=== PATIENT | female | born 1995 | race Caucasian/White ===

== ENCOUNTER 2018-12-01 00:33 | Inpatient (IN) | payer MEDICAID ==
[~2018-12-01] VITALS: Ht 152.4 cm; Wt 83.4 kg
[2018-12-01] MEDS ORDERED: LORazepam 2MG/ML-1ML VIAL IV ONE ×2 (01:00→05:45)
[2018-12-01] MEDS ORDERED: SODIUM CHLORIDE 0.9% 1,000 ML IV ONE ×2 (01:00→04:15)
[2018-12-01 01:45] LABS: Basophils # (auto) 0.1 uL; Basophils % (auto) 0.8 % (0.0-2.0); Eosinophils # (auto) 0.1 uL; Hemoglobin 13.1 g/dL (12.2-16.2); Lymphocytes % (auto) 33.3 % (10.0-50.0); Mean Corpuscular Hemoglobin 29.8 pg (28.0-32.0); Mean Corpuscular Hgb Conc. 33.7 g/dL (32.0-36.0); Mean Corpuscular Volume 88.3 fL (80.0-100.0); Monocytes # (auto) 0.9 uL; Monocytes % (auto) 7.9 % (0.0-12.0); Neutrophils # (auto) 6.8 uL; Nucleated Red Blood Cells % 0.1 %; Platelet Count (auto) 345 10^3/uL (140-450); Red Blood Cells 4.41 10^6/uL (4.0-5.20); Red Cell Distribution Width 12.7 % (11.8-14.3); White Blood Cell 11.9 10^3/uL (4.4-10.8)
[2018-12-01 01:51] LABS: Alanine Aminotransferase 35 U/L (13-56); Albumin 2.6 g/dL (3.4-5.0); Anion Gap 9 (5-15); Aspartate Aminotransferase 39 U/L (15-37); BUN/Creatinine Ratio 18.6; Blood Alcohol < 3.0 mg/dL (0-5); Blood Urea Nitrogen 8 mg/dL (7-18); Carbon Dioxide 15 mmol/L (21-32); Chloride 121 mmol/L (98-107); GFR African American 238 mL/min; GFR Non-African American 197 mL/min; Glucose 69 mg/dL (74-106); Sodium 145 mmol/L (136-145)
[2018-12-01 01:53] LABS: Potassium 2.5 mmol/L (3.5-5.1)
[2018-12-01 01:54] LABS: Alkaline Phosphatase 49 U/L (45-117); Bilirubin, Total 0.3 mg/dL (0.2-1.0); Total Protein 5.2 g/dL (6.4-8.2)
[2018-12-01] MEDS ORDERED: POTASSIUM CHL 10% (20 MEQ/15ML) 15ml ORAL SOLN PO ONE (02:00)
[2018-12-01 02:02] LABS: Acetaminophen 3.5 ug/mL (10-30); Salicylate < 1.7 mg/dL (2.8-20.0)
[2018-12-01] MEDS: MAGNESIUM SULFATE 1GM/100ML 100 ML IV SCH ×3 (03:49→07:00)
[2018-12-01] MEDS ORDERED: LORazepam 2MG/ML-1ML VIAL ONE (05:30)
[2018-12-01] MEDS ORDERED: MORPHINE SULF INJ 2 MG/ML SYRINGE 1ML IV PRN (05:45)
[2018-12-01] MEDS ORDERED: NITROGLYCERIN 0.4 MG SL TAB SL PRN (05:45)
[2018-12-01] MEDS ORDERED: ONDANSETRON HCL 4 MG/2 ML VIAL IV PRN (05:45)
[2018-12-01] MEDS ORDERED: SODIUM CHLORIDE 0.9% 500 ML IV ONE (06:00)
[2018-12-01] MEDS: SODIUM CHLORIDE 0.9% 1,000 ML IV SCH ×2 (08:35→18:13)
[2018-12-01 08:39] LABS: Alcohol, Urine < 3.0 mg/dL (0-5); Amphetamine Screen, Urine NEGATIVE (NEGATIVE); Barbiturate Scree,Urine NEGATIVE (NEGATIVE); Benzodiazephine Screen, Urine NEGATIVE (NEGATIVE); Cannabinoid Screen, Urine NEGATIVE (NEGATIVE); Cocaine Screen, Urine NEGATIVE (NEGATIVE); Opiate Scree,Urine NEGATIVE (NEGATIVE)
[2018-12-01 08:45] LABS: Phencyclidine Screen, Urine NEGATIVE (NEGATIVE)
[2018-12-01 09:06] LABS: Urine Bacteria NONE SEEN /hpf (None Seen); Urine Blood Negative /uL (Negative); Urine Mucus FEW (None Seen); Urine Specific Gravity 1.012 (1.001-1.035); Urine WBC 14 /hpf (0 - 5)
[2018-12-01] MEDS: FAMOTIDINE 20 MG TAB PO SCH ×2 (10:28→21:18)
[2018-12-01 13:30] VITALS: BP 138/80
[2018-12-01 14:56] LABS: BUN/Creatinine Ratio 9.6
[2018-12-01 16:34] LABS: Albumin 4.1 g/dL (3.4-5.0); Bilirubin, Direct 0.2 mg/dL (0-0.2)
[2018-12-01 16:40] LABS: Bilirubin, Total 0.8 mg/dL (0.2-1.0); Total Protein 7.3 g/dL (6.4-8.2)
[2018-12-01] MEDS: CEPHALEXIN 250 MG CAP PO SCH ×2 (18:39→23:39)
[2018-12-01 21:44] VITALS: BP 117/68
[2018-12-02] VITALS (7 sets, daily range): BP systolic 105–136; BP diastolic 49–72
[2018-12-02] MEDS: SODIUM CHLORIDE 0.9% 1,000 ML IV SCH ×2 (05:00→14:08)
[2018-12-02] MEDS: CEPHALEXIN 250 MG CAP PO SCH ×3 (05:45→18:09)
[2018-12-02 06:30] LABS: Basophils # (auto) 0 uL; Basophils % (auto) 0.4 % (0.0-2.0); Eosinophils # (auto) 0.2 uL; Eosinophils % (auto) 2.8 % (0.0-7.0); Hematocrit 39.2 % (36.0-46.0); Hemoglobin 13.4 g/dL (12.2-16.2); Lymphocytes # (auto) 3.6 uL; Lymphocytes % (auto) 46.4 % (10.0-50.0); Mean Corpuscular Hemoglobin 30.4 pg (28.0-32.0); Mean Corpuscular Hgb Conc. 34.1 g/dL (32.0-36.0); Mean Corpuscular Volume 89.3 fL (80.0-100.0); Monocytes # (auto) 0.7 uL; Monocytes % (auto) 8.9 % (0.0-12.0); Neutrophils # (auto) 3.2 uL; Neutrophils % (auto) 41.5 % (37.0-80.0); Nucleated Red Blood Cells % 0.1 %; Platelet Count (auto) 383 10^3/uL (140-450); Red Blood Cells 4.39 10^6/uL (4.0-5.20); Red Cell Distribution Width 12.6 % (11.8-14.3); White Blood Cell 7.7 10^3/uL (4.4-10.8)
[2018-12-02 06:43] LABS: INR 0.94 (0.9-1.15); Partial Thromboplastin Time 27.1 sec (23.78-33.04); Prothrombin Time 10.1 sec (9.27-12.13)
[2018-12-02 06:51] LABS: Potassium 3.9 mmol/L (3.5-5.1)
[2018-12-02 07:01] LABS: Albumin 3.8 g/dL (3.4-5.0); BUN/Creatinine Ratio 16.7; Bilirubin, Total 1.2 mg/dL (0.2-1.0); Calcium 9.1 mg/dL (8.5-10.1); Magnesium 2.5 mg/dL (1.6-2.6); Total Protein 6.9 g/dL (6.4-8.2)
[2018-12-02] MEDS: FAMOTIDINE 20 MG TAB PO SCH ×2 (09:40→22:27)
== END 2018-12-02 23:22 | DRG 812 ==
LOC: EDBD 00:33 → ER 00:44 → TELE 05:49 → DOU IN ICU 08:14 → TELE 09:43 → TELE-CENTR 13:27
PROVIDERS: ADMIT Nurse Practitioner; ATTEND Internal Medicine
DX: T45.0X2A Poisoning by antiallergic and antiemetic drugs, intentional self-harm, initial encounter (principal); R45.851 Suicidal ideations; E87.6 Hypokalemia; N39.0 Urinary tract infection, site not specified; R00.0 Tachycardia, unspecified; Y92.89 Other specified places as the place of occurrence of the external cause
CPT/HCPCS: 36415; 36600; 71045; 80048; 80053; 80076; 80307; 80320; 80329; 81001; 81025; 82805; 83735; 84132; 85025; 85610; 85730; 93005; 94761; 96361; 96365; 96366; 96375; 99291; G0378

== ENCOUNTER 2019-08-10 00:32 | Emergency (ER) | payer MEDICAID ==
[~2019-08-10] VITALS: Ht 160 cm; Wt 81.6 kg
[2019-08-10 01:19] LABS: Basophils # (auto) 0 uL; Eosinophils # (auto) 0.1 uL; Lymphocytes # (auto) 2.9 uL
[2019-08-10 01:21] LABS: Basophils % (auto) 0.3 % (0.0-2.0); Hematocrit 41.9 % (36.0-46.0); Hemoglobin 14.4 g/dL (12.2-16.2); Lymphocytes % (auto) 29.6 % (10.0-50.0); Mean Corpuscular Hemoglobin 30.3 pg (28.0-32.0); Mean Corpuscular Hgb Conc. 34.2 g/dL (32.0-36.0); Mean Corpuscular Volume 88.7 fL (80.0-100.0); Monocytes # (auto) 0.6 uL; Monocytes % (auto) 6.7 % (0.0-12.0); Neutrophils # (auto) 6.1 uL; Neutrophils % (auto) 62.4 % (37.0-80.0); Platelet Count (auto) 475 10^3/uL (140-450); Red Blood Cells 4.73 10^6/uL (4.0-5.20); Red Cell Distribution Width 12.8 % (11.8-14.3); White Blood Cell 9.7 10^3/uL (4.4-10.8)
[2019-08-10 01:33] LABS: Anion Gap 10 (5-15); Aspartate Aminotransferase 21 U/L (15-37); BUN/Creatinine Ratio 10.3; Blood Urea Nitrogen 8 mg/dL (7-18); Carbon Dioxide 22 mmol/L (21-32); Chloride 107 mmol/L (98-107); GFR African American 120 mL/min; GFR Non-African American 99 mL/min; Glucose 112 mg/dL (74-106); Potassium 3.1 mmol/L (3.5-5.1); Sodium 139 mmol/L (136-145)
[2019-08-10 01:41] LABS: Alanine Aminotransferase 35 U/L (13-56); Albumin 4.3 g/dL (3.4-5.0); Alkaline Phosphatase 83 U/L (45-117); Bilirubin, Total 0.6 mg/dL (0.2-1.0); Total Protein 8.2 g/dL (6.4-8.2)
[2019-08-10 07:03] LABS: Urine Bacteria FEW /hpf (None Seen); Urine Blood Negative /uL (Negative); Urine Mucus FEW (None Seen); Urine Specific Gravity 1.009 (1.001-1.035); Urine WBC 1 /hpf (0 - 5)
[2019-08-10 07:17] VITALS: BP 138/86
== END 2019-08-10 08:39 | disposition home or self-care (01) ==
LOC: ER 00:32
DX: N89.8 Other specified noninflammatory disorders of vagina (principal)
CPT/HCPCS: 36415; 71046; 80053; 81001; 81025; 85025; 87210

== ENCOUNTER 2024-02-28 13:55 | Emergency (ER) | payer MEDICAID, OTHER ==
[~2024-02-28] VITALS: Ht 157.5 cm; Wt 77.1 kg
[2024-02-28] MEDS: ONDANSETRON ODT 4 MG TAB PO ONE (15:36)
[2024-02-28] MEDS: ACETAMINOPHEN 325 MG TAB PO ONE (15:37)
[2024-02-28 15:45] LABS: Urine Bacteria FEW /hpf (None Seen); Urine Blood 1+ /uL (Negative); Urine Clarity Clear (Clear); Urine Color Colorless (Yellow); Urine Protein, UAD Negative (Negative); Urine Specific Gravity 1.008 (1.001-1.035); Urine Urobilinogen Normal (Negative); Urine WBC 9 /hpf (0 - 5); Urine pH 6.5 (5.0-9.0)
[2024-02-28 16:46] VITALS: BP 137/64; PULSE 77; RESP 18; TEMP 98.6; O2SAT 98
== END 2024-02-28 16:49 | disposition home or self-care (01) ==
LOC: ER 13:55
DX: S80.212A Abrasion, left knee, initial encounter (principal); M24.542 Contracture, left hand; M24.541 Contracture, right hand; M25.531 Pain in right wrist; V49.69XA Unspecified car occupant injured in collision with other motor vehicles in traffic accident, initial encounter; Y93.89 Activity, other specified; Y92.89 Other specified places as the place of occurrence of the external cause; Y99.8 Other external cause status
CPT/HCPCS: 71046; 74018; 81001; 81025; 99284; Q0162